=== PATIENT | male | born 1940 | race Caucasian/White ===

== ENCOUNTER 2021-07-01 10:21 | Outpatient (CLI) | payer OTHER, SELFPAY ==
[2021-07-01 12:27] LABS: Absolute Lymphocyte Count 1.15 X10^3/uL (0.83-4.51); Absolute Neutrophil Count 3.2 X10^3/uL (2.0-7.7); Basophil# 0.04 X10^3/uL; Basophil% 0.8 % (0-1); Eosinophil# 0.12 X10^3/uL; Eosinophils% 2.4 % (0-5); Hematocrit 43.9 % (40-54); Hemoglobin 15.4 g/dL (13.0-16.5); Lymphocyte # 1.15 X10^3/ul (0.83-4.51); Mean Corp Hgb Conc 35.1 g/dL (32-36); Mean Corpuscular Hgb 32.6 pg (27.0-32.0); Mean Corpuscular Volume 92.8 fL (80-94); Mean Platelet Vol. 10.9 fl (6.2-12.0); Monocyte# 0.46 X10^3/uL; Monocyte% 9.2 % (0-10); NRBC Flagged by Analyzer 0 % (0-5); Neutrophil # 3.22 X10^3/uL (2.7-7.7); Neutrophil % 64.2 % (47-70); Platelet Count 167 K/mm3 (150-450); RBC Distribution Width SD 44.2 fl (35.1-43.9); Red Blood Count 4.73 M/mm3 (4.6-6.2)
[2021-07-01 12:43] LABS: ALB/GLOB Ratio 1.1 RATIO (0.9-2.4); AST(SGOT) 21 U/L (15-37); Alanine Aminotransfer ALT/SGPT 34 U/L (16-61); Albumin, Serum 3.8 g/dL (3.2-5.0); Alkaline Phosphatase 81 U/L (45-117); Anion Gap 6 (5-15); BUN 27 mg/dL (7-18); BUN/Creat Ratio 30.6 RATIO (10-20); Calcium,Total 8.4 mg/dL (8.5-10.1); Chloride 107 mmol/L (98-107); Creatinine, Serum 0.88 mg/dL (0.70-1.30); EST Glomerular Filtration Rate 88 mL/min (>60); Est Glom Filt Rate - Afr Amer 107 mL/min (>60); Globulin 3.4 g/dL (2.2-4.2); Glucose 83 mg/dL (74-106); Potassium 3.9 mmol/L (3.5-5.1); Protein, Total 7.2 g/dL (6.4-8.2); Sodium Level 140 mmol/L (136-145)
== END 2021-07-01 23:59 | disposition home or self-care (01) ==
LOC: MTLAB 10:23
PROVIDERS: PCP Physician Assistant; Referring Provider Internal Medicine Rheumatology; Visit Provider Internal Medicine Rheumatology
DX: M06.00 Rheumatoid arthritis without rheumatoid factor, unspecified site (principal); M65.342 Trigger finger, left ring finger; Z79.899 Other long term (current) drug therapy
CPT/HCPCS: 36415; 80053; 85025

== ENCOUNTER → 2023-12-20 | Outpatient (CLI) | payer OTHER, SELFPAY ==
[2023-12-20 17:40] LABS: Absolute Lymphocyte Count 1.04 X10^3/uL (0.83-4.51); Basophil# 0.03 X10^3/uL; Basophil% 0.6 % (0-1); Eosinophil# 0.22 X10^3/uL; Eosinophils% 4.6 % (0-5); Hematocrit 41.9 % (40-54); Hemoglobin 14.2 g/dL (13.0-16.5); Lymphocyte # 1.04 X10^3/ul (0.83-4.51); Lymphocyte % 21.6 % (19-41); Mean Corp Hgb Conc 33.9 g/dL (32-36); Mean Corpuscular Hgb 32.3 pg (27.0-32.0); Mean Corpuscular Volume 95.2 fL (80-94); Mean Platelet Vol. 11.3 fl (6.2-12.0); Monocyte# 0.55 X10^3/uL; Monocyte% 11.4 % (0-10); NRBC Flagged by Analyzer 0 % (0-5); Neutrophil # 2.97 X10^3/uL (2.7-7.7); Neutrophil % 61.6 % (47-70); Platelet Count 135 K/mm3 (150-450); RBC Distribution Width CV 12.6 % (11.6-14.6); RBC Distribution Width SD 43.7 fl (35.1-43.9); White Blood Count 4.8 K/mm3 (4.4-11.0)
[2023-12-20 18:19] LABS: ALB/GLOB Ratio 1.2 RATIO (0.9-2.4); AST(SGOT) 12 U/L (15-37); Alanine Aminotransfer ALT/SGPT 21 U/L (16-61); Albumin, Serum 3.6 g/dL (3.2-5.0); Alkaline Phosphatase 68 U/L (45-117); Anion Gap 4 (5-15); BUN 22 mg/dL (7-18); BUN/Creat Ratio 22.3 RATIO (10-20); Calcium,Total 8.4 mg/dL (8.5-10.1); Chloride 110 mmol/L (98-107); Creatinine, Serum 0.98 mg/dL (0.70-1.30); EST Glomerular Filtration Rate 77 mL/min (>60); Est Glom Filt Rate - Afr Amer 93 mL/min (>60); Glucose 98 mg/dL (74-106); Protein, Total 6.6 g/dL (6.4-8.2); Sodium Level 139 mmol/L (136-145)
== END | disposition home or self-care (01) ==
PROVIDERS: PCP Physician Assistant; Referring Provider Internal Medicine Rheumatology; Visit Provider Internal Medicine Rheumatology
DX: M06.00 Rheumatoid arthritis without rheumatoid factor, unspecified site (principal); Z79.899 Other long term (current) drug therapy
CPT/HCPCS: 36415; 80053; 85025